=== PATIENT | female | born 1975 | race Caucasian/White ===

== ENCOUNTER → 2016-05-31 | Outpatient (CLI) | payer BC ==
--- NOTE | 2016-05-31 14:01 | CT ---
EXAMINATION TYPE: CT abdomen pelvis w con DATE OF EXAM: 05/31/2016 1:47 PM COMPARISON: NONE HISTORY: 40-year-old female complains of right flank pain and microscopic hematuria. TECHNIQUE: Contiguous axial scanning of the abdomen and pelvis following administration of 100 ml Omn ipaque 300 IV contrast. Delayed images through the kidneys and coronal/sagittal reconstructions perf ormed. CT DLP: 349.8 mGycm Automated exposure control for dose reduction was used. FINDINGS: Partially visualized bilateral breast prostheses. Heart is normal size without pericardial effusion. Lung bases clear without pleural effusion. Subcentimeter hypodensity anterior mid liver, axial image 18 too small for accurate CT characterizati on, probable cyst. Portal venous system is patent. The bile duct is prominent at 6 mm. Gallbladder, adrenal glands, right kidney, spleen, and pancreas show no gross anomaly. Nonobstructive 3 mm calculus lower pole left kidney. There is symmetric uptake and excretion of contr ast by both kidneys. No dilated small bowel, free fluid, or free air. Overall paucity of intra-abdominal fat limits evaluation for lymphadenopathy. There is moderate stool burden with oral contrast progressed to the hepatic flexure. The appendix is not clearly visualized. Bladder is urine distended. Uterus is visualized. Right ovary is visualized. Left ovary obscured by t ightly clustered bowel loops and limited intra-abdominal fat. There may be a small amount of cul-de-s ac free fluid. Bones: No osseous destructive process. IMPRESSION: 1. WHILE THE APPENDIX IS NOT CLEARLY VISUALIZED, THERE ARE NO INDIRECT SIGNS OF ACUTE APPENDICITIS. 2. NONOBSTRUCTIVE 3 MM LEFT RENAL CALCULUS. NO HYDRONEPHROSIS ON EITHER SIDE. 3. BORDERLINE ENLARGEMENT OF THE BILE DUCT. CORRELATE WITH ALKALINE PHOSPHATASE AND BILIRUBIN LEVELS TO EXCLUDE THE POSSIBILITY OF BILIARY OBSTRUCTION. NO DISTAL OBSTRUCTING LESION IS SEEN. 4. MODERATE STOOL BURDEN; CORRELATE FOR CONSTIPATION.
== END | disposition home or self-care (01) ==
LOC: RADCTMAIN 11:38
PROVIDERS: ATTEND Family Medicine
DX: N20.0 Calculus of kidney (principal); K83.8 Other specified diseases of biliary tract
CPT/HCPCS: 74177; Q9967

== ENCOUNTER → 2024-07-28 | Outpatient (CLI) | payer BC ==
--- NOTE | 2024-07-29 07:48 | USB ---
Reason for Exam: Clinical finding. Risk Values: Velia 5 year model risk: 0.6%. NCI Lifetime model risk: 6.0%. Technique: Method: Whole Breast Handheld. Findings: The whole breast of both breasts, the axilla of both breasts and the retroareolar of both breasts were scanned. A complete US of all four quadrants of the breast and retro-areolar region were reviewed. No solid or cystic masses are identified..Small simple cyst noted at the left 12:00 position measuring 6 x 4 mm. Additional tiny cyst at the right 11:00 position 5 cm from the nipple measuring 4 x 2 mm. No additional lesions present. No solid masses detected. Bilateral implants are present. Patient refuses mammography. If the patient continues to refuse mammography bilateral ultrasound is recommended. Overall Assessment: Benign, BI-RAD 2 Management: Screening Mammogram of both breasts in 1 day. A clinical breast exam by your physician is recommended on an annual basis and results should be correlated with mammographic findings. This exam should not preclude additional follow-up of suspicious palpable abnormalities. Results were given to the patient verbally at the time of exam. [facility], , 07/29/2024 7:46 AM. Electronically signed and approved by: Tyler Kurtz M.D. Radiolog[facility]
== END | disposition home or self-care (01) ==
LOC: RADUSWWP 15:01
PROVIDERS: ATTEND Family Medicine
DX: Z12.39 Encounter for other screening for malignant neoplasm of breast (principal); N60.01 Solitary cyst of right breast; N60.02 Solitary cyst of left breast